=== PATIENT | male | born 1985 | race Two or more races ===

== ENCOUNTER 2020-07-08 06:24 | Outpatient (CLI) | payer OTHER | END 2020-07-08 15:00 | disposition home or self-care (01) | LOC: LAB 06:24 | PROVIDERS: ATTEND Internal Medicine Hematology & Oncology | DX: D50.8 Other iron deficiency anemias (principal); R79.89 Other specified abnormal findings of blood chemistry; D63.8 Anemia in other chronic diseases classified elsewhere; D55.0 Anemia due to glucose-6-phosphate dehydrogenase [G6PD] deficiency; D59.19 Other autoimmune hemolytic anemia; E03.8 Other specified hypothyroidism; R97.0 Elevated carcinoembryonic antigen [CEA]; R97.8 Other abnormal tumor markers; K64.8 Other hemorrhoids; M51.26 Other intervertebral disc displacement, lumbar region ==

== ENCOUNTER → 2020-08-12 | Outpatient (CLI) | payer OTHER | END | disposition home or self-care (01) | LOC: SONOGRAMA 09:58 → MAMO-SONO 10:30 | PROVIDERS: ATTEND Internal Medicine Hematology & Oncology | DX: E04.2 Nontoxic multinodular goiter (principal); E03.8 Other specified hypothyroidism; D50.0 Iron deficiency anemia secondary to blood loss (chronic); K64.8 Other hemorrhoids; M51.26 Other intervertebral disc displacement, lumbar region ==